=== PATIENT | female | born 1945 ===

== ENCOUNTER 2017-06-09 16:08 | Emergency (ER) | payer MEDICARE ==
[2017-06-09 16:29] VITALS: TEMP 98.4
[2017-06-09] MEDS ORDERED: Promethazine 6.25 MG/5 ML CUP PO STA (19:29)
--- NOTE | 2017-06-09 19:34 | ED PDOC ---
Arrival/HPI - General Chief Complaint: Cough, Cold, Congestion Time Seen by Provider: 06/09/17 17:17 Historian: Patient - History of Present Illness Narrative History of Present Illness (Text): 06/09/17 19:31 71yo female with PMHx of hypertension in ED with complaint of nonproductive cough x 3days. She also report an episode of vomiting and diarrhea yesterday. States she started having chest pain with cough and headache today. she did not take any medication for her symptoms. Denies fever, chills, sick contact, travel , any other complaint. Past Medical History - Provider Review Nursing Documentation Reviewed: Yes - Infectious Disease Hx of Infectious Diseases: None - Cardiac Hx Cardiac Disorders: Yes Hx Hypertension: Yes - Pulmonary Hx Respiratory Disorders: No - Neurological Hx Neurological Disorder: No - HEENT Hx HEENT Disorder: No - Renal Hx Renal Disorder: No - Endocrine/Metabolic Hx Endocrine Disorders: No - Hematological/Oncological Hx Blood Disorders: No - Integumentary Hx Dermatological Disorder: No - Musculoskeletal/Rheumatological Hx Musculoskeletal Disorders: No - Gastrointestinal Hx Gastrointestinal Disorders: No - Genitourinary/Gynecological Hx Genitourinary Disorders: No - Psychiatric Hx Psychophysiologic Disorder: No Hx Substance Use: No - Anesthesia Hx Anesthesia: No Family/Social History - Physician Review Nursing Documentation Reviewed: Yes Family/Social History: Unknown Family HX Smoking Status: Never Smoked Hx Alcohol Use: No Hx Substance Use: No Allergies/Home Meds Allergies/Adverse Reactions: Allergies NSAIDS (Non-Steroidal Anti-Inflamma Allergy (Verified 06/09/17 16:25) RASH Home Medications: Home Meds Medication Instructions Recorded Confirmed Atenolol [Tenormin] 25 mg PO DAILY 06/09/17 06/09/17 Rosuvastatin Calcium [Rosuvastatin 10 mg PO DAILY 06/09/17 06/09/17 Calcium] Review of Systems - Physician Review All systems were reviewed & negative as marked: Yes - Review of Systems Constitutional: Normal Eyes: Normal ENT: Normal Respiratory: Cough. absent: SOB, Sputum, Wheezing Cardiovascular: Normal Gastrointestinal: Normal Genitourinary Female: Normal Musculoskeletal: Normal Skin: Normal Neurological: Headache. absent: Dizziness, Focal Weakness Endocrine: Normal Hemo/Lymphatic: Normal Psychiatric: Normal Physical Exam Vital Signs Reviewed: Yes Vital Signs Temp Pulse Resp BP Pulse Ox 06/09/17 20:14 87 19 131/78 98 06/09/17 16:29 98.4 F 110 H 17 143/89 95 Temperature: Afebrile Blood Pressure: Normal Pulse: Tachycardic Respiratory Rate: Normal Appearance: Positive for: Well-Appearing, Non-Toxic, Comfortable Pain Distress: None Mental Status: Positive for: Alert and Oriented X 3 - Systems Exam Head: Present: Atraumatic, Normocephalic Pupils: Present: PERRL Extroacular Muscles: Present: EOMI Conjunctiva: Present: Normal Mouth: Present: Moist Mucous Membranes Neck: Present: Normal Range of Motion Respiratory/Chest: Present: Clear to Auscultation, Good Air Exchange. No: Respiratory Distress, Accessory Muscle Use, Wheezes, Decreased Breath Sounds, Rales, Retracting, Rhonchi Cardiovascular: Present: Regular Rate and Rhythm, Normal S1, S2. No: Murmurs Abdomen: Present: Normal Bowel Sounds. No: Tenderness, Distention, Peritoneal Signs Back: Present: Normal Inspection Upper Extremity: Present: Normal Inspection. No: Cyanosis, Edema Lower Extremity: Present: Normal Inspection. No: Edema Neurological: Present: GCS=15, CN II-XII Intact, Speech Normal Skin: Present: Warm, Dry, Normal Color. No: Rashes Psychiatric: Present: Alert, Oriented x 3, Normal Insight, Normal Concentration Medical Decision Making ED Course and Treatment: 06/10/17 02:27 PT was hemodynamically stable and comfortable in ED. She stated that she is tolerating food and fluid . Chest xray - NAD Rapid influenza negative PT was treated with Zpack and antitussive and referred to her PMD/ - Lab Interpretations Lab Results: Lab Results 06/09/17 19:11: Grp A Beta Strep Ag Negative 06/09/17 19:00: Influenza Typ A,B (EIA) Negative for flu a/b - RAD Interpretation Radiology Orders: 06/09/17 17:19 CHEST TWO VIEWS (PA/LAT) [RAD] Stat - Medication Orders Current Medication Orders: Discontinued Medications Acetaminophen (Tylenol 325mg Tab) 650 mg PO STAT STA Stop: 06/09/17 17:21 Last Admin: 06/09/17 19:13 Dose: 650 mg MAR Pain/Vitals Document 06/09/17 19:13 EQ (Rec: 06/09/17 19:13 EQ [id number]) Pain Reassessment Is This A Pain ReAssessment? No Sleep Is patient sleeping during reassessment? No Presence of Pain Presence of Pain Yes Azithromycin (Zithromax) 500 mg PO STAT STA PRN Reason: Protocol Stop: 06/09/17 19:30 Last Admin: 06/09/17 20:15 Dose: 500 mg Ondansetron HCl (Zofran Odt) 4 mg PO STAT STA Stop: 06/09/17 17:21 Last Admin: 06/09/17 19:13 Dose: 4 mg Promethazine HCl (Phenergan Syrup) 6.25 mg PO ONCE STA Stop: 06/09/17 19:30 Last Admin: 06/09/17 20:15 Dose: 6.25 mg Disposition/Present on Arrival - Present on Arrival Any Indicators Present on Arrival: No History of DVT/PE: No History of Uncontrolled Diabetes: No Urinary Catheter: No History of Decub. Ulcer: No History Surgical Site Infection Following: None - Disposition Have Diagnosis and Disposition been Completed?: Yes Diagnosis: Cough, Headache, Vomiting Disposition: HOME/ ROUTINE Disposition Time: 19:35 Patient Plan: Discharge Condition: STABLE Discharge Instructions (ExitCare): Acute Cough (ED) Additional Instructions: Follow up with your doctor Return to ED for any new or worsening symptoms Prescriptions: Azithromycin [Zithromax] 250 mg PO DAILY #4 tab Promethazine [Phenergan Syrup] 6.25 mg PO Q6 #118 cup Referrals: PCP,NO [Primary Care Provider] - Follow up with primary [facility] [Outside] - Follow up with primary Forms: [employer] (Latvian)
[2017-06-09 20:14] VITALS: BP 131/78; PULSE 87; RESP 19; O2SAT 98
--- NOTE | 2017-06-10 08:17 | RAD ---
HISTORY: cough COMPARISON: No prior. TECHNIQUE: Chest PA and lateral FINDINGS: LUNGS: No active pulmonary disease. PLEURA: No significant pleural effusion identified. No pneumothorax apparent. CARDIOVASCULAR: Normal. OSSEOUS STRUCTURES: No significant abnormalities. VISUALIZED UPPER ABDOMEN: Normal. OTHER FINDINGS: None. IMPRESSION: No active disease.
== END 2017-06-09 20:16 | disposition home or self-care (01) ==
LOC: ED 16:08
DX: R05 Cough (principal); R51 Headache; R11.10 Vomiting, unspecified; I10 Essential (primary) hypertension